=== PATIENT | male | born 1985 | race Caucasian/White ===

== ENCOUNTER → 2022-06-08 | Outpatient (CLI) | payer OTHER ==
--- NOTE | 2022-06-08 12:57 | XR ---
EXAMINATION TYPE: XR ribs LT w pa chest xray DATE OF EXAM: 06/08/2022 CLINICAL HISTORY: Pain, Fall Four views of the ribs fail demonstrate evidence for displaced rib fracture or secondary sign of rib fracture. Visualized lungs are clear. No evidence for pneumothorax. IMPRESSION: No displaced rib fractures seen. ICD 10 NO FRACTURE, INITIAL EVALUATION
--- NOTE | 2022-06-08 12:58 | XR ---
EXAMINATION TYPE: XR cervical spine comp DATE OF EXAM: 06/08/2022 CLINICAL HISTORY: pain COMPARISON: NONE TECHNIQUE: Frontal, lateral, oblique, swimmers, and open mouth view of the cervical spine are obtaine d. FINDINGS: The cervical spine is visualized in its entirety from C1 thru the top of T1 level. It is s atisfactory in alignment without evidence of acute fracture or dislocation. The pre-vertebral soft t issue appears within normal limits. Mild degenerative narrowing and spurring C5-6 and C6-7. The C1-C2 articulation is unremarkable on the open mouth view. The oblique images are within normal limits. IMPRESSION: No acute fracture or dislocation is seen in the cervical spine.ICD 10 NO FRACTURE, INITI AL EVALUATION
== END | disposition home or self-care (01) ==
LOC: RADXRYALE 11:49
PROVIDERS: ATTEND Physician Assistant
DX: M54.2 Cervicalgia (principal); M54.50 Low back pain, unspecified; R07.82 Intercostal pain
CPT/HCPCS: 72050

== ENCOUNTER → 2022-11-10 | Outpatient (CLI) | payer SELFPAY ==
--- NOTE | 2022-11-10 16:22 | US ---
EXAMINATION TYPE: US abdomen complete DATE OF EXAM: 11/10/2022 COMPARISON: NONE CLINICAL HISTORY: R10.30 Lower abd pain R63.4 Abn weight loss. Abdominal pain, weight loss TECHNIQUE: Multiple sonographic images of the abdomen are obtained. FINDINGS: EXAM MEASUREMENTS: Liver Length: 18.7 cm Gallbladder Wall: 0.3 cm CBD: 0.3 cm Spleen: 12.0 cm Right Kidney: 10.3 x 4.4 x 5.0 cm Left Kidney: 12.5 x 6.0 x 5.3 cm Pancreas: slightly heterogeneous Liver: enlarged Gallbladder: no evidence of stones Evidence for sonographic Maier's sign: no CBD: wnl Spleen: wnl Right Kidney: no evidence of hydronephrosis Left Kidney: no evidence of hydronephrosis Upper IVC: wnl Abd Aorta: wnl The visualized liver is homogenous. Size is prominent projecting past lower pole right kidney. The i ntrahepatic portion of the IVC and proximal abdominal aorta are within normal limits. There is no ev idence of cholelithiasis. Common bile duct is unremarkable. The visualized portions of the pancreas are slightly heterogeneous. The spleen is unremarkable. Kidneys are symmetric and free of hydronep hrosis. No renal lesions are seen. IMPRESSION: No acute findings are evident. No suspicious mass or adenopathy. Hepatomegaly is noted.
== END | disposition home or self-care (01) ==
LOC: RADUSWWP 15:32
PROVIDERS: ATTEND Family Medicine
DX: R10.30 Lower abdominal pain, unspecified (principal); R63.4 Abnormal weight loss; R16.0 Hepatomegaly, not elsewhere classified
CPT/HCPCS: 76700

== ENCOUNTER → 2023-01-31 | Outpatient (CLI) | payer BC ==
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
--- NOTE | 2023-02-01 07:34 | XR ---
EXAMINATION TYPE: XR cervical spine 5 views comp DATE OF EXAM: 01/31/2023 COMPARISON: 06/08/2022 HISTORY: 37-year-old male M542, R071, cervicalgia, other chest pain. FINDINGS: Normal odontoid view. No predental space widening or prevertebral soft tissue swelling. Mild degenera tive disc disease C5-C6 and C6-C7. Alignment is maintained. Mild facet and uncovertebral joint degene rative spurring lower cervical spine. This contributes to moderate bony neural foraminal narrowing on the right at C6-C7 and mild on the left. IMPRESSION: Mild spondylotic change especially C5-C7 levels. No prevertebral soft tissue swelling or malalignment . Changes may contribute to moderate bony neural foraminal narrowing on the right at C6-C7 and mild o n the left.
== END | disposition home or self-care (01) ==
LOC: RADXRYALE 16:38
PROVIDERS: ATTEND Physician Assistant
DX: M47.812 Spondylosis without myelopathy or radiculopathy, cervical region (principal); R07.1 Chest pain on breathing
CPT/HCPCS: 71046; 72050

== ENCOUNTER → 2023-02-09 | Outpatient (CLI) | payer BC ==
--- NOTE | 2023-02-10 07:26 | US ---
EXAMINATION TYPE: US groin LT DATE OF EXAM: 02/09/2023 COMPARISON: NONE CLINICAL HISTORY: R10.814 LT LOWER QUAD ABD TENDERNESS. left groin pain TECHNIQUE: FINDINGS: Scanned left groin, within patient's area of concern. no obvious abnormality by ultrasound at this time. no changes in abdominal wall with valsalva IMPRESSION: No discrete abnormality seen
== END | disposition home or self-care (01) ==
LOC: RADUSWWP 16:16
PROVIDERS: ATTEND Family Medicine
DX: R10.814 Left lower quadrant abdominal tenderness (principal)

== ENCOUNTER → 2023-02-14 | Outpatient (CLI) | payer BC ==
--- NOTE | 2023-02-15 07:36 | XR ---
EXAMINATION TYPE: XR Hip Complete LT DATE OF EXAM: 02/14/2023 COMPARISON: None HISTORY: Left hip pain TECHNIQUE: 2 view left hip FINDINGS: Femoral head articulates with the acetabulum. Some acetabular sclerosis is present. Joint s pace appears preserved. No acute fractures are evident. IMPRESSION: 1. No acute osseous abnormality left hip.
== END | disposition home or self-care (01) ==
LOC: RADXRYALE 15:55
PROVIDERS: ATTEND Physician Assistant
DX: M25.552 Pain in left hip (principal)
CPT/HCPCS: 73502